=== PATIENT | female | born 1960 | race Caucasian/White ===

== ENCOUNTER 2021-01-21 15:55 | Emergency (ER) | payer OTHER ==
[2021-01-21 16:07] VITALS: BP 102/69; PULSE 73; TEMP 97.6; BMI 49.6
[2021-01-21] MEDS ORDERED: diazePAM 5 MG TABLET PO ONE (17:45)
[2021-01-21] MEDS ORDERED: KETOROLAC TROMETHAMINE 30 MG/1 ML VIAL IM ONE (17:45)
[2021-01-21] MEDS ORDERED: KETOROLAC TROMETHAMINE 30 MG/1 ML VIAL ONE (17:46)
[2021-01-21] MEDS ORDERED: diazePAM 5 MG TABLET ONE (17:47)
== END 2021-01-21 17:53 | disposition home or self-care (01) ==
LOC: JERFT 15:55 → JER 15:55 → JERFT 17:53
PROC: 3E0233Z Introduction of Anti-inflammatory into Muscle, Percutaneous Approach (ICD-10-PCS; principal; 2021-01-21)
DX: M54.32 Sciatica, left side (principal)
CPT/HCPCS: 99284-25